=== PATIENT | male | born 1945 | race Caucasian/White ===

== ENCOUNTER → 2024-06-30 12:07 | Outpatient (REF) | payer MEDICARE, SELFPAY | LOC: MRI 3T 12:07 | PROVIDERS: ATTENDING PHYSICIAN Specialist; FAMILY PHYSICIAN Family Medicine | DX: R97.20 Elevated prostate specific antigen [PSA] (principal); N52.8 Other male erectile dysfunction | CPT/HCPCS: 72197; A9575 ==

== ENCOUNTER → 2024-07-18 17:35 | Outpatient (REF) | payer MEDICARE, SELFPAY | LOC: CLAB 17:35 | PROVIDERS: ATTENDING PHYSICIAN Specialist | DX: R97.20 Elevated prostate specific antigen [PSA] (principal) | CPT/HCPCS: 88305 ==